=== PATIENT | male | born 1970 | race Caucasian/White ===

== ENCOUNTER 2020-12-24 11:50 | Emergency (ER) | payer SELFPAY ==
[~2020-12-24] VITALS: Ht 177 cm; Wt 90.7 kg
[2020-12-24 11:55] VITALS: BP 135/83
--- NOTE | 2020-12-24 12:06 | ED Integumentary General ---
General Chief Complaint: Upper Extremity Stated Complaint: BILATER HAND BLISTERING History of Present Illness Date Seen by Provider: Dec 24, 2020 Time Seen by Provider: 12:06 Initial Comments 50-year-old male presents with blistery rash on his hands. He reports that he "started within the last week." Patient reports that he gets large blisters that then popped with some fluid in them. Greater on his left hand is right. Start to get a few of these blisters up on his forearms. He has no other part on his body. Reports he started a new job couple weeks ago and is unsure if he got into anything. He does however report that he had some full body itching over the last couple months. Allergies and Home Medications Patient Home Medication List Home Medication List Reviewed: Yes Review of Systems Review of Systems Constitutional: No chills, No fever Respiratory: No cough Cardiovascular: No chest pain Gastrointestinal: no symptoms reported Skin: see HPI Psychiatric/Neurological: No Symptoms Reported Endocrine: No Symptoms Reported Past Jtrumen-Ovvaho-Ghakks Hx Past Med/Social Hx: Reviewed Nursing Past Med/Soc Hx Physical Exam Vital Signs Vital Signs - First Documented 12/24/20 11:55 Temp 37.0 Pulse 84 Resp 16 B/P (MAP) 135/83 (100) Pulse Ox 100 O2 Delivery Room Air Capillary Refill : General Appearance: no apparent distress Cardiovascular: normal peripheral pulses, regular rate, rhythm Respiratory: lungs clear, normal breath sounds Gastrointestinal: non tender, soft Skin Problem Location: upper extremities (Bilateral hands) Skin Problem Character: bullous Progress/Results/Core Measures Results/Orders Vital Signs/I&O 12/24/20 11:55 Temp 37.0 Pulse 84 Resp 16 B/P (MAP) 135/83 (100) Pulse Ox 100 O2 Delivery Room Air Progress Progress Note : Time: 12:35 Progress Note Patient is already on a topical steroid which is treatment of choice. Literature review shows there may be some efficacy in doxycycline. I will prescribe him doxycycline in addition to topical steroid. Discussed with him that he will need to continue to follow-up with his primary care provider and try to arrange for dermatology consult. Patient stable and discharged home Departure Impression Primary Impression: Bullous dermatosis Disposition: 01 HOME, SELF-CARE Condition: Stable Departure-Patient Inst. Referrals: [facility] (PCP/Family) Primary Care Physician Patient Instructions: Bullous Pemphigoid Scripts Doxycycline Hyclate (Doxycycline Hyclate) 100 Mg Tablet 100 MG PO BID, #20 TAB 0 Refills Prov: ULICES PRICE DO 12/24/20 ULICES PRICE DO Dec 24, 2020 12:06
[2020-12-24] MEDS ORDERED: DOXY100T2 PO (12:37)
== END 2020-12-24 12:54 | disposition home or self-care (01) ==
LOC: EDUNIT# 11:50 → ER 11:53
DX: L13.9 Bullous disorder, unspecified (principal)
CPT/HCPCS: 99282

== ENCOUNTER 2021-11-05 21:51 | Inpatient (IN) | payer SELFPAY ==
[~2021-11-05] VITALS: Ht 182.9 cm; Wt 100.0 kg
[~2021-11-05 21:51] MED LIST: DOXY100T2 PO
[2021-11-05] MEDS ORDERED: ceFAZolin INJECTION 1,000 MG in NS (IVPB) 50 ML IV STA (22:04)
[2021-11-05] MEDS ORDERED: TETANUS,DIPTH,PERTUSS P/F (BOOSTRIX) 0.5 ML VIAL IM ONE (22:15)
[2021-11-05] MEDS ORDERED: NS IV 1000 ML 1,000 ML IV SCH (22:15)
[2021-11-05 22:18] LABS: BASOPHILS % (AUTO) 0 % (0-10); EOSINOPHILS # (AUTO) 0.2 10^3/uL (0.0-0.3); EOSINOPHILS % (AUTO) 2 % (0-10); HEMATOCRIT 50 % (40-54); HEMOGLOBIN 16.5 g/dL (13.3-17.7); LYMPHOCYTES # (AUTO) 3.1 10^3/uL (1.0-4.0); LYMPHOCYTES % (AUTO) 39 % (12-44); MEAN CORPUSCULAR HEMOGLOBIN 31 pg (25-34); MEAN CORPUSCULAR HGB CONC 33 g/dL (32-36); MEAN CORPUSCULAR VOLUME 94 fL (80-99); MONOCYTES # (AUTO) 0.6 10^3/uL (0.0-1.0); MONOCYTES % (AUTO) 7 % (0-12); NEUTROPHILS % (AUTO) 51 % (42-75); PLATELET COUNT 222 10^3/uL (130-400); WHITE BLOOD COUNT 7.8 10^3/uL (4.3-11.0)
[2021-11-05 22:24] LABS: CHLORIDE 103 MMOL/L (98-107); POTASSIUM 2.7 MMOL/L (3.6-5.0); SODIUM 139 MMOL/L (135-145)
[2021-11-05 22:25] LABS: ALBUMIN 3.9 GM/DL (3.2-4.5); CALCIUM 8.3 MG/DL (8.5-10.1)
[2021-11-05 22:26] LABS: TRIGLYCERIDES 77 MG/DL (<150); VLDL CHOLESTEROL 15 MG/DL (5-40)
[2021-11-05 22:27] LABS: GLUCOSE 198 MG/DL (70-105); TOTAL PROTEIN 6.5 GM/DL (6.4-8.2)
[2021-11-05 22:28] LABS: BILIRUBIN,TOTAL 0.5 MG/DL (0.1-1.0)
[2021-11-05 22:30] LABS: PHOSPHORUS 2.7 MG/DL (2.3-4.7)
[2021-11-05 22:31] LABS: ALKALINE PHOSPHATASE 78 U/L (40-136); CHOLESTEROL 87 MG/DL (< 200); CREATININE SERUM 1.55 MG/DL (0.60-1.30); GFR ESTIMATED 55
[2021-11-05 22:32] LABS: BILIRUBIN,DIRECT 0.3 MG/DL (0.0-0.3); BILIRUBIN,INDIRECT 0.2 MG/DL; BUN/CREATININE RATIO 9
[2021-11-05 22:33] LABS: HDL CHOLESTEROL 29 MG/DL (40-60)
[2021-11-05 22:34] LABS: ALANINE AMINOTRANSFERASE 36 U/L (0-55); MAGNESIUM 2.6 MG/DL (1.6-2.4)
[2021-11-05 22:35] LABS: CARBON DIOXIDE 9 MMOL/L (21-32)
[2021-11-05] MEDS ORDERED: fentaNYL INJ 100 MCG/2 ML AMP ONE (22:43)
[2021-11-05] MEDS ORDERED: HOLD METFORMIN - RECEIVED CONTRAST 20 ML VIAL IV SCH (22:45)
[2021-11-05] MEDS ORDERED: IOHEXOL 350 MG/ML 150 ML (OMNIPAQUE 350) VIAL IV ONE (22:45)
[2021-11-05] MEDS ORDERED: NS 100 ML (IVPB) BAG IV ONE (22:45)
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
[2021-11-05] MEDS ORDERED: D5 1/2 NS W/KCL 20 MEQ/L 1,000 ML IV SCH (23:00)
[2021-11-05 23:02] LABS: FIBRIN DEGRADATION PRODUCTS 0.96 UG/ML (0.00-0.49); INR 1.2 (0.8-1.4)
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
[2021-11-05] MEDS ORDERED: LACTATED RINGERS 1,000 ML IV ONE ×2 (23:30)
[2021-11-05 23:51] LABS: HEMATOCRIT 38 % (40-54); HEMOGLOBIN 13.1 g/dL (13.3-17.7); MEAN CORPUSCULAR HEMOGLOBIN 32 pg (25-34); MEAN CORPUSCULAR HGB CONC 35 g/dL (32-36); MEAN CORPUSCULAR VOLUME 93 fL (80-99); PLATELET COUNT 167 10^3/uL (130-400); WHITE BLOOD COUNT 14.8 10^3/uL (4.3-11.0)
[2021-11-05 23:54] LABS: BILIRUBIN,URINE NEGATIVE (NEGATIVE); CLARITY,URINE CLEAR; COLOR,URINE YELLOW; GLUCOSE, URINE (UA) NEGATIVE (NEGATIVE); KETONES,URINE NEGATIVE (NEGATIVE); LEUKOCYTE ESTERASE ,URINE NEGATIVE (NEGATIVE); NITRITE,URINE NEGATIVE (NEGATIVE); PH,URINE 6.5 (5-9); PROTEIN,URINE TRACE (NEGATIVE)
[2021-11-06] MEDS ORDERED: fentaNYL INJ 100 MCG/2 ML AMP IVP ONE
[2021-11-06 00:04] LABS: AMPHETAMINE SCREEN, URINE NEGATIVE (NEGATIVE); BARBITURATE SCREEN URINE NEGATIVE (NEGATIVE); BENZODIAZEPINES SCREEN URINE NEGATIVE (NEGATIVE); CANNABINOID SCREEN, URINE NEGATIVE (NEGATIVE); COCAINE SCREEN URINE NEGATIVE (NEGATIVE); METHADONE STAT NEGATIVE (NEGATIVE); METHAMPHETAMINE SCREEN URINE S NEGATIVE (NEGATIVE); OPIATE SCREEN URINE NEGATIVE (NEGATIVE); OXYCODONE STAT NEGATIVE (NEGATIVE); PROPOXYPHENE STAT NEGATIVE (NEGATIVE); TRICYCLIC ANTIDEPRESSANTS SCRE NEGATIVE (NEGATIVE)
[2021-11-06 00:05] LABS: BACTERIA,URINE NEGATIVE /HPF; RBC,URINE 0-2 /HPF; SQUAMOUS EPITHELIAL CELL,UR RARE /HPF
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
[2021-11-06] MEDS ORDERED: ONDANSETRON 4 MG/2 ML (SDV) Z0FRAN IVP ONE (00:45)
[2021-11-06] MEDS ORDERED: fentaNYL INJ 100 MCG/2 ML AMP ONE (01:16)
[2021-11-06] MEDS ORDERED: fentaNYL INJ 100 MCG/2 ML AMP IV PRN (01:45)
[2021-11-06 01:52] VITALS: BP 100/88
[2021-11-06 02:05] LABS: HEMOGLOBIN 11.8 g/dL (13.3-17.7)
[2021-11-06 02:11] LABS: ALBUMIN 2.8 GM/DL (3.2-4.5)
[2021-11-06 02:13] LABS: CALCIUM 7.3 MG/DL (8.5-10.1)
[2021-11-06] MEDS: HYDROcodone/APAP 5 MG/325 MG (LORTAB) TAB PO PRN ×5 (02:13→20:56)
[2021-11-06 02:14] LABS: TOTAL PROTEIN 4.5 GM/DL (6.4-8.2)
[2021-11-06] MEDS ORDERED: RT-ALBUTEROL HFA 8.5 GM INHALER IH PRN (02:15)
[2021-11-06] MEDS ORDERED: inSUlin ASPART (NovoLOG) 1 UNIT/0.01 ML (CHARGE PER UNIT) SC SCH (02:15)
[2021-11-06 02:16] LABS: BILIRUBIN,TOTAL 0.5 MG/DL (0.1-1.0)
[2021-11-06] MEDS: ONDANSETRON 4 MG/2 ML (SDV) Z0FRAN IV PRN ×2 (02:16→08:44)
[2021-11-06 02:17] LABS: PHOSPHORUS 1.7 MG/DL (2.3-4.7)
[2021-11-06 02:18] LABS: CREATININE SERUM 1.11 MG/DL (0.60-1.30)
[2021-11-06 02:20] LABS: MAGNESIUM 2.4 MG/DL (1.6-2.4)
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
[2021-11-06 04:11] LABS: HEMOGLOBIN 12.6 g/dL (13.3-17.7)
[2021-11-06] MEDS ORDERED: POTASSIUM CL 10MEQ/50ML IVPB 250 ML IV ONE (04:17)
[2021-11-06] MEDS: POTASSIUM CL 10MEQ/50ML IVPB 50 ML IV SCH ×5 (04:19→08:37)
[2021-11-06 04:23] LABS: INR 1.3 (0.8-1.4); PROTHROMBIN TIME PATIENT 16.5 SEC (12.2-14.7)
[2021-11-06] MEDS: KCL 20 MEQ TAB (K-DUR) PO SCH (04:32)
[2021-11-06] MEDS: MAGNESIUM 1 GM/100 ML IVPB 100 ML IV SCH (04:32)
[2021-11-06] MEDS: D5 1/2 NS W/KCL 20 MEQ/L 1,000 ML IV SCH ×2 (05:40→07:56)
[2021-11-06] MEDS: fentaNYL INJ 100 MCG/2 ML AMP IVP PRN (05:40)
[2021-11-06] MEDS ORDERED: ceFAZolin 2 GM/50 ML (PRE-MIXED) IV SCH (06:00)
[2021-11-06] MEDS ORDERED: ceFAZolin INJECTION 1,000 MG ONE ×2 (06:01→06:02)
[2021-11-06] MEDS ORDERED: NS (IVPB) 100 ML ONE (06:01)
[2021-11-06 06:41] LABS: BASOPHILS % (AUTO) 0 % (0-10); EOSINOPHILS % (AUTO) 0 % (0-10); HEMATOCRIT 33 % (40-54); HEMOGLOBIN 11.4 g/dL (13.3-17.7); LYMPHOCYTES # (AUTO) 0.7 10^3/uL (1.0-4.0); LYMPHOCYTES % (AUTO) 5 % (12-44); MEAN CORPUSCULAR HEMOGLOBIN 32 pg (25-34); MEAN CORPUSCULAR HGB CONC 34 g/dL (32-36); MEAN CORPUSCULAR VOLUME 93 fL (80-99); MEAN PLATELET VOLUME 11.6 fL (9.0-12.2); MONOCYTES % (AUTO) 7 % (0-12); NEUTROPHILS # (AUTO) 12.9 10^3/uL (1.8-7.8); NEUTROPHILS % (AUTO) 88 % (42-75); PLATELET COUNT 195 10^3/uL (130-400); WHITE BLOOD COUNT 14.7 10^3/uL (4.3-11.0)
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
[2021-11-06] MEDS ORDERED: NS IV 1000 ML 1,000 ML IV SCH (08:00)
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
[2021-11-06 08:18] LABS: HEMOGLOBIN 11.1 g/dL (13.3-17.7)
[2021-11-06] MEDS: NS IV 1000 ML 1,000 ML IV SCH ×3 (08:37→20:57)
[2021-11-06 10:09] LABS: HEMOGLOBIN 10.2 g/dL (13.3-17.7)
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
[2021-11-06] MEDS: inSUlin ASPART (NovoLOG) 1 UNIT/0.01 ML (CHARGE PER UNIT) SC SCH ×2 (11:43→17:34)
[2021-11-06] MEDS: CEFEPIME INJECTION 1,000 MG in NS (IVPB) 50 ML IV SCH ×2 (13:43→17:29)
[2021-11-06 16:12] LABS: HEMOGLOBIN 8.6 g/dL (13.3-17.7)
[2021-11-07] MEDS: CEFEPIME INJECTION 1,000 MG in NS (IVPB) 50 ML IV SCH ×4 (00:45→17:48)
[2021-11-07] MEDS: HYDROcodone/APAP 5 MG/325 MG (LORTAB) TAB PO PRN ×5 (00:45→20:06)
[2021-11-07] MEDS: NS IV 1000 ML 1,000 ML IV SCH ×2 (04:10→11:39)
[2021-11-07] MEDS: fentaNYL INJ 100 MCG/2 ML AMP IVP PRN (05:10)
[2021-11-07] MEDS ORDERED: HOLD METFORMIN - RECEIVED CONTRAST 20 ML VIAL IV SCH (05:15)
[2021-11-07] MEDS ORDERED: IOHEXOL 350 MG/ML 100 ML (OMNIPAQUE 350) VIAL IV ONE (05:15)
[2021-11-07] MEDS ORDERED: NS 100 ML (IVPB) BAG IV ONE (05:15)
[2021-11-07 05:29] LABS: BASOPHILS % (AUTO) 0 % (0-10); EOSINOPHILS % (AUTO) 0 % (0-10); HEMATOCRIT 24 % (40-54); HEMOGLOBIN 8.2 g/dL (13.3-17.7); LYMPHOCYTES # (AUTO) 0.8 10^3/uL (1.0-4.0); LYMPHOCYTES % (AUTO) 15 % (12-44); MEAN CORPUSCULAR HEMOGLOBIN 32 pg (25-34); MEAN CORPUSCULAR HGB CONC 34 g/dL (32-36); MEAN CORPUSCULAR VOLUME 95 fL (80-99); MEAN PLATELET VOLUME 11.5 fL (9.0-12.2); MONOCYTES # (AUTO) 0.4 10^3/uL (0.0-1.0); MONOCYTES % (AUTO) 7 % (0-12); NEUTROPHILS # (AUTO) 4.3 10^3/uL (1.8-7.8); NEUTROPHILS % (AUTO) 77 % (42-75); PLATELET COUNT 157 10^3/uL (130-400); WHITE BLOOD COUNT 5.6 10^3/uL (4.3-11.0)
[2021-11-07 05:47] LABS: ALBUMIN 2.6 GM/DL (3.2-4.5); BILIRUBIN,TOTAL 0.5 MG/DL (0.1-1.0); CALCIUM 6.9 MG/DL (8.5-10.1); CREATININE SERUM 0.92 MG/DL (0.60-1.30); MAGNESIUM 2.3 MG/DL (1.6-2.4); PHOSPHORUS 1.4 MG/DL (2.3-4.7); POTASSIUM 3.2 MMOL/L (3.6-5.0); TOTAL PROTEIN 4.2 GM/DL (6.4-8.2)
[2021-11-07] MEDS: MAGNESIUM 1 GM/100 ML IVPB 100 ML IV SCH (05:58)
[2021-11-07] MEDS: POTASSIUM CL 10MEQ/50ML IVPB 50 ML IV SCH (05:58)
[2021-11-07] MEDS ORDERED: KCL 20 MEQ TAB (K-DUR) PO ONE ×2 (06:00→08:15)
[2021-11-07] MEDS: inSUlin ASPART (NovoLOG) 1 UNIT/0.01 ML (CHARGE PER UNIT) SC SCH ×3 (06:03→12:45)
[2021-11-07] MEDS: KCL 20 MEQ TAB (K-DUR) PO SCH (06:03)
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
[2021-11-08] MEDS: CEFEPIME INJECTION 1,000 MG in NS (IVPB) 50 ML IV SCH ×4 (00:08→17:49)
[2021-11-08] MEDS: HYDROcodone/APAP 5 MG/325 MG (LORTAB) TAB PO PRN ×5 (00:12→20:14)
[2021-11-08 06:03] LABS: BASOPHILS % (AUTO) 0 % (0-10); EOSINOPHILS % (AUTO) 1 % (0-10); HEMATOCRIT 21 % (40-54); HEMOGLOBIN 7.1 g/dL (13.3-17.7); LYMPHOCYTES # (AUTO) 0.8 10^3/uL (1.0-4.0); LYMPHOCYTES % (AUTO) 15 % (12-44); MEAN CORPUSCULAR HEMOGLOBIN 32 pg (25-34); MEAN CORPUSCULAR HGB CONC 34 g/dL (32-36); MEAN CORPUSCULAR VOLUME 95 fL (80-99); MEAN PLATELET VOLUME 10.7 fL (9.0-12.2); MONOCYTES # (AUTO) 0.4 10^3/uL (0.0-1.0); MONOCYTES % (AUTO) 8 % (0-12); NEUTROPHILS # (AUTO) 3.8 10^3/uL (1.8-7.8); NEUTROPHILS % (AUTO) 76 % (42-75); PLATELET COUNT 163 10^3/uL (130-400)
[2021-11-08 06:13] LABS: ALBUMIN 2.5 GM/DL (3.2-4.5); POTASSIUM 3.2 MMOL/L (3.6-5.0)
[2021-11-08 06:16] LABS: TOTAL PROTEIN 4.1 GM/DL (6.4-8.2)
[2021-11-08 06:17] LABS: BILIRUBIN,TOTAL 0.5 MG/DL (0.1-1.0)
[2021-11-08 06:19] LABS: CREATININE SERUM 0.74 MG/DL (0.60-1.30); PHOSPHORUS 1.1 MG/DL (2.3-4.7)
[2021-11-08 06:22] LABS: MAGNESIUM 2.2 MG/DL (1.6-2.4)
[2021-11-08] MEDS: KCL 20 MEQ TAB (K-DUR) PO SCH (08:44)
[2021-11-08] MEDS: POTASSIUM CL 10MEQ/50ML IVPB 50 ML IV SCH (09:30)
[2021-11-08] MEDS: MAGNESIUM 1 GM/100 ML IVPB 100 ML IV SCH (09:30)
[2021-11-08] MEDS ORDERED: KCL 20 MEQ TAB (K-DUR) PO ONE (12:00)
[2021-11-08 13:32] LABS: HEMOGLOBIN 7.5 g/dL (13.3-17.7)
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
[2021-11-08] MEDS ORDERED: NS (IVPB) 250 ML ONE (19:58)
[2021-11-08] MEDS: ONDANSETRON 4 MG/2 ML (SDV) Z0FRAN IV PRN (20:13)
[2021-11-08] MEDS: DOCUSATE SODIUM 100 MG (COLACE) CAP PO SCH (20:13)
[2021-11-08] MEDS: fentaNYL INJ 100 MCG/2 ML AMP IVP PRN (20:13)
[2021-11-09] MEDS: fentaNYL INJ 100 MCG/2 ML AMP IVP PRN (01:02)
[2021-11-09] MEDS: CEFEPIME INJECTION 1,000 MG in NS (IVPB) 50 ML IV SCH ×3 (01:02→11:54)
[2021-11-09 05:25] LABS: BASOPHILS % (AUTO) 0 % (0-10); EOSINOPHILS # (AUTO) 0.1 10^3/uL (0.0-0.3); EOSINOPHILS % (AUTO) 1 % (0-10); HEMATOCRIT 22 % (40-54); HEMOGLOBIN 7.5 g/dL (13.3-17.7); LYMPHOCYTES % (AUTO) 18 % (12-44); MEAN CORPUSCULAR HEMOGLOBIN 32 pg (25-34); MEAN CORPUSCULAR HGB CONC 34 g/dL (32-36); MEAN CORPUSCULAR VOLUME 94 fL (80-99); MEAN PLATELET VOLUME 10.2 fL (9.0-12.2); MONOCYTES # (AUTO) 0.4 10^3/uL (0.0-1.0); MONOCYTES % (AUTO) 7 % (0-12); NEUTROPHILS # (AUTO) 4.1 10^3/uL (1.8-7.8); NEUTROPHILS % (AUTO) 73 % (42-75); PLATELET COUNT 210 10^3/uL (130-400); WHITE BLOOD COUNT 5.7 10^3/uL (4.3-11.0)
[2021-11-09 05:35] LABS: ALBUMIN 2.8 GM/DL (3.2-4.5); POTASSIUM 3.6 MMOL/L (3.6-5.0)
[2021-11-09 05:36] LABS: CALCIUM 7.5 MG/DL (8.5-10.1)
[2021-11-09 05:38] LABS: TOTAL PROTEIN 4.6 GM/DL (6.4-8.2)
[2021-11-09 05:39] LABS: BILIRUBIN,TOTAL 0.5 MG/DL (0.1-1.0)
[2021-11-09 05:41] LABS: PHOSPHORUS 1.4 MG/DL (2.3-4.7)
[2021-11-09 05:42] LABS: CREATININE SERUM 0.72 MG/DL (0.60-1.30)
[2021-11-09 05:44] LABS: MAGNESIUM 2.1 MG/DL (1.6-2.4)
[2021-11-09] MEDS: MAGNESIUM 1 GM/100 ML IVPB 100 ML IV SCH (06:00)
[2021-11-09] MEDS: POTASSIUM CL 10MEQ/50ML IVPB 50 ML IV SCH (06:00)
[2021-11-09] MEDS: KCL 20 MEQ TAB (K-DUR) PO SCH (06:00)
[2021-11-09] MEDS ORDERED: NS (IVPB) 250 ML ONE (06:43)
[2021-11-09] MEDS: DOCUSATE SODIUM 100 MG (COLACE) CAP PO SCH (08:33)
[2021-11-09 08:37] VITALS: BP 115/56
[2021-11-09] MEDS: HYDROcodone/APAP 5 MG/325 MG (LORTAB) TAB PO PRN ×2 (09:15→13:15)
[2021-11-09] MEDS ORDERED: TRM50T PO ×2 (17:56→17:58)
[2021-11-09] MEDS ORDERED: AMOX-358 PO (17:56)
[2021-11-09 18:38] VITALS: BP 118/57
== END 2021-11-09 18:38 | disposition home or self-care (01) | DRG 154 ==
LOC: EDUNIT# 21:51 → ER 21:52 → CSD 23:00 → OBSVTOIN 23:00 → ICU 11-06 00:14 → 4TH 11-08 10:48
PROVIDERS: ADMIT Surgery; ATTEND Surgery
DX: S01.312A Laceration without foreign body of left ear, initial encounter (principal); T79.4XXA Traumatic shock, initial encounter; U07.1 COVID-19; N17.9 Acute kidney failure, unspecified; D62 Acute posthemorrhagic anemia; E87.2 Acidosis; S41.012A Laceration without foreign body of left shoulder, initial encounter; S01.01XA Laceration without foreign body of scalp, initial encounter; S31.119A Laceration without foreign body of abdominal wall, unspecified quadrant without penetration into peritoneal cavity, initial encounter; S31.105A Unspecified open wound of abdominal wall, periumbilic region without penetration into peritoneal cavity, initial encounter; W26.0XXA Contact with knife, initial encounter; Y93.89 Activity, other specified; Y92.090 Kitchen in other non-institutional residence as the place of occurrence of the external cause; Z88.0 Allergy status to penicillin; F17.210 Nicotine dependence, cigarettes, uncomplicated; I95.89 Other hypotension; N18.9 Chronic kidney disease, unspecified; Z23 Encounter for immunization; D69.6 Thrombocytopenia, unspecified; R73.9 Hyperglycemia, unspecified; E87.6 Hypokalemia
CPT/HCPCS: 36415; 70450; 70486; 70491; 71045; 71250; 71260; 72125; 74176; 74177; 74178; 80053; 80061; 80076; 80306; 80320; 81000; 82947; 83036; 83735; 83874; 84100; 85014; 85018; 85025; 85027; 85379; 85384; 85610; 85730; 86850; 86900; 86901; 87081; 87636; 90471; 90715; 94640; 94664; 96361; 96365; 96375; 96376; 99291; 99292

== ENCOUNTER 2021-11-10 21:26 | Emergency (ER) | payer SELFPAY ==
[~2021-11-10] VITALS: Ht 182.9 cm; Wt 100.0 kg
[~2021-11-10 21:26] MED LIST changes: +AMOX-358 PO; +TRM50T PO
[2021-11-10 21:34] VITALS: BP 134/65
== END 2021-11-10 21:36 | disposition home or self-care (01) ==
LOC: EDUNIT# 21:26 → ER 21:29
DX: Z48.00 Encounter for change or removal of nonsurgical wound dressing (principal)

== ENCOUNTER → 2022-11-07 | Outpatient (CLI) | payer OTHER ==
[~2022-11-07] MED LIST changes: +HOLD METFORMIN - RECEIVED CONTRAST 20 ML VIAL IV SCH; +IOHEXOL 350 MG/ML 100 ML (OMNIPAQUE 350) VIAL IV ONE; +NS 100 ML (IVPB) BAG IV ONE
--- NOTE | 2022-11-07 16:07 | Diagnostic Imaging Report ---
PROCEDURE: CT abdomen and pelvis with contrast. TECHNIQUE: Multiple contiguous axial images were obtained through the abdomen and pelvis after administration of intravenous contrast. Auto Exposure Controls were utilized during the CT exam to meet ALARA standards for radiation dose reduction. All CT scans use one or more of the following dose optimizing techniques: automated exposure control, MA and/or KvP adjustment based on patient size and exam type or iterative reconstruction. INDICATION: Ventral incisional hernia left lower quadrant. Comparison is made with prior CT from 11/07/2021. Imaging through lung bases does show several pulmonary micronodules in the right and left lower lobes, similar to prior exam and indeterminate. The liver demonstrates generalized low attenuation consistent with hepatic steatosis. There is a small low-attenuation lesion right lobe liver, stable and likely a cyst. Gallbladder is slightly distended but no definite wall thickening or pericholecystic inflammation or fluid is identified. No biliary duct dilatation. Pancreas and spleen are unremarkable. No adrenal mass is identified. There are nonobstructing calculi in both kidneys. There is no hydronephrosis. Aorta is nonaneurysmal. There is a small fat-containing right paramidline ventral hernia just above the level of the umbilicus. Even smaller right paramidline fat-containing ventral hernia is noted just above this level as well. Spigelian hernia on the left is noted which does contain multiple bowel loops. These appear to be small bowel loops. No wall thickening or evidence of strangulation is seen. There is some moderate distention to the stomach. There is no ascites. No fluid collection or free air is seen. Bladder is decompressed. Prostate is unremarkable. IMPRESSION: 1. Hepatic steatosis. 2. Bilateral nonobstructing nephrolithiasis. 3. Abdominal wall hernias, as described. Largest is in the left lower quadrant, spigelian-type but containing small bowel loops. No strangulation or bowel infarction is detected. Dictated by: Dictated on workstation # [id number]
== END ==
LOC: RAD 13:15
PROVIDERS: ATTEND Surgery
DX: K43.2 Incisional hernia without obstruction or gangrene (principal); K76.0 Fatty (change of) liver, not elsewhere classified; N20.0 Calculus of kidney
CPT/HCPCS: 74177

== ENCOUNTER 2022-12-07 05:32 | Outpatient (CLI) | payer SELFPAY ==
[~2022-12-07] VITALS: Ht 182.9 cm; Wt 95.5 kg
[~2022-12-07 05:32] MED LIST changes: -HOLD METFORMIN - RECEIVED CONTRAST 20 ML VIAL IV SCH; -IOHEXOL 350 MG/ML 100 ML (OMNIPAQUE 350) VIAL IV ONE; -NS 100 ML (IVPB) BAG IV ONE
== END 2022-12-11 16:39 ==
LOC: PREOP 05:32
PROVIDERS: ATTEND Surgery
DX: Z01.818 Encounter for other preprocedural examination (principal); K43.2 Incisional hernia without obstruction or gangrene

== ENCOUNTER 2022-12-14 06:51 | Day surgery (SDC) | payer OTHER ==
[~2022-12-14] VITALS: Ht 182.9 cm; Wt 95.5 kg
[2022-12-14] VITALS (11 sets, daily range): BP systolic 104–132; BP diastolic 73–87
[2022-12-14] MEDS ORDERED: proPOfol 200 MG/20 ML (DIPRIVAN) VIAL IV ONE (07:03)
[2022-12-14] MEDS ORDERED: fentaNYL INJ 100 MCG/2 ML AMP ONE ×2 (07:03→11:53)
[2022-12-14] MEDS ORDERED: ONDANSETRON 4 MG/2 ML (SDV) Z0FRAN ONE (07:03)
[2022-12-14] MEDS ORDERED: MIDAZOLAM 2 MG/2 ML (VERSED) VIAL ONE (07:03)
[2022-12-14] MEDS ORDERED: SEVOFLURANE (ULTANE) 15 ML INHAL SOLN ONE ×2 (07:03→11:01)
[2022-12-14] MEDS ORDERED: LIDOCAINE PF 2% 5 ML (XYLOCAINE) VIAL ONE (07:03)
[2022-12-14] MEDS ORDERED: BUP/EPI 0.5% 1:200,000 (SENSORCAINE) 30 ML VIAL ONE (07:22)
[2022-12-14] MEDS: LACTATED RINGERS 1,000 ML IV PRN ×2 (07:28→11:00)
[2022-12-14] MEDS ORDERED: CLINDAMYCIN 600 MG/50 ML IVPB 50 ML IV ONE (07:30)
[2022-12-14] MEDS ORDERED: NEOSTIGMINE (BLOXIVERZ ) 1 MG/1ML 10 ML VIAL ONE (11:00)
[2022-12-14] MEDS ORDERED: GLYCOPYRROLATE 0.2 MG/ML (ROBINUL) 2 ML VIAL ONE (11:00)
--- NOTE | 2022-12-14 11:12 | Progress Note-Post Operative ---
Post-Operative Progess Note Surgeon (s)/Entry Level Account Manager (s) Surgeon BARBI PERRY DO Entry Level Account Manager: Dr. Connors Pre-Operative Diagnosis VENTRAL/INCISIONAL HERNIA Post-Operative Diagnosis incarcerated incisional/ventral hernia x 2 Procedure & Operative Findings Date of Procedure 12/14/22 Procedure Performed/Findings robotic incarcerated incisional hernia repair x 2 Anesthesia Type general Estimated Blood Loss Estimated blood loss (mL): minimal Specimens/Packing Specimens Removed na BARBI PERRY DO Dec 14, 2022 11:12
--- NOTE | 2022-12-14 11:12 | Discharge Inst-Simple/Standard ---
Discharge Inst-Standard Discharge Medications New, Converted or Re-Newed RX: Transmitted to Pharmacy Patient Instructions/Follow Up Plan of Care/Instructions/FU: 2 weeks marcela Activity as Tolerated: No Discharge Diet: Regular Diet Other Inst to Patient Follow up Appt: Make appointment for 2 week. Instructions: No lifting greater than 10 pounds. No strenuous activity. May shower in 24 hours, no tub bath or soaking. Use incentive spirometer at home as directed. No Smoking Skin/Wound Care: You have special glue over your incision that will fall off on it's own. Symptoms to Report: Appetite Changes, Extremity Discoloration, Numbness/Tingling, Swelling Increased, Bleeding Excessive, Eyesight Changes, Pain Increased, Urine Color Change, Constipation(Persistent), Fever over 101 degree F, Pain/Pressure in chest, Urinating Difficulty, Cough Up/Vomit Blood, Heart Beat Irreg/Pounding, Pain/Pressure in jaw, Vaginal Bleeding Increase, Cramps in feet or legs, Lightheadedness, Pain/Pressure in shoulder, Diarrhea(Persistent), Memory Changes Suddenly, Questions/Concerns, Weight gain consecutive days, Dizziness/Fainting, Nausea/Vomiting, Shortness of Breath, Weight gain over 2 pounds If questions or concerns contact your physician Or seek help at emergency department. BARBI PERRY DO Dec 14, 2022 11:12
[2022-12-14] MEDS ORDERED: ACHD5005 PO (11:13)
[2022-12-14] MEDS ORDERED: DOCU-143 PO (11:13)
--- NOTE | 2022-12-14 11:20 | Anesthesia-General Post-Op ---
General Patient Condition Mental Status/LOC: Same as Preop Cardiovascular: Satisfactory Nausea/Vomiting: Absent Respiratory: Satisfactory Pain: Controlled Complications: Absent Post Op Complications Complications None Follow Up Care/Instructions Patient Instructions None needed. Anesthesia/Patient Condition Patient Condition Patient is doing well, no complaints, stable vital signs, no apparent adverse anesthesia problems. No complications reported per nursing. RONAN CLAYTON CRNA Dec 14, 2022 11:20
[2022-12-14] MEDS ORDERED: morphine INJ 10 MG/ML 1ML (SYR OR VIAL) ONE (11:21)
[2022-12-14] MEDS ORDERED: morphine INJ 10 MG/ML 1ML (SYR OR VIAL) IVP ONE (11:30)
[2022-12-14] MEDS ORDERED: fentaNYL INJ 100 MCG/2 ML AMP IVP ONE (11:30)
[2022-12-14] MEDS ORDERED: ONDANSETRON 4 MG/2 ML (SDV) Z0FRAN IVP PRN (11:30)
[2022-12-14] MEDS ORDERED: ONDANSETRON 4 MG (ZOFRAN) ORAL DISSOLVE TAB PO ONE (13:45)
[2022-12-14] MEDS ORDERED: HYDROcodone/APAP 5 MG/325 MG (LORTAB) TAB PO ONE (13:45)
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
== END 2022-12-14 14:21 ==
LOC: SDC 06:51
PROVIDERS: ATTEND Surgery
DX: K43.0 Incisional hernia with obstruction, without gangrene (principal); F17.210 Nicotine dependence, cigarettes, uncomplicated
CPT/HCPCS: 49592; 87081; 94664; C1781 ×2